=== PATIENT | female | born 1980 | race Caucasian/White ===

== ENCOUNTER 2019-04-07 04:58 | Inpatient (IN) | payer SELFPAY ==
[2019-04-07 05:05] VITALS: BP 136/90; PULSE 101; RESP 18; TEMP 36.7; O2SAT 99; BMI 23.3
[2019-04-07 05:11] VITALS: PULSE 88; RESP 16; O2SAT 97
--- NOTE | 2019-04-07 05:33 | ED_ITS ---
Entered by Cece Okeefe, acting as scribe for Beatrice Sorto Sunitha Apr 07, 2019 04:58 HPI - Female Genitourinary General: Chief complaint: Urogenital-Female Stated complaint: green vaginal discharge Time Seen by Provider: 04/07/19 05:24 Source: patient Mode of arrival: ambulatory History of Present Illness: HPI Narrative: 39 y/o female presents to the ED with complaint of lower abd pain and cramping. Pt states this has been going on for 7-10 days. She states to has green vaginal discharge and a foul odor ( it smells like something crawled up in there and ). She has recently had a new sexual partner who has been with multiple other women. She has had thoughts of harming herself because of increased social stress. Pt is currently homeless and reports not being able to see her kids. She was going to seek psychiatric help before today, but she did not have anyone to take care of her dogs if she was admitted to the [facility]. MD elicited complaint: vaginal discharge and possible STD Pertinent past history: PID Onset (ago): day(s) Location of symptoms: vaginal and pelvis Severity: moderate Quality of pain: cramping Consistency: progressively worsening Vaginal bleeding: other (green) Urinary symptoms: Foul Smelling Urine Associated symptoms: Reports abdominal pain; Deny headache(s), nausea or syncope Sexual activity: Yes and New Sexual Partners Review of Systems General: Reports: other (negative unless marked) Const: Denies: fever, chills, body aches, fatigue, malaise or diaphoresis Eyes: Denies: change in vision or blurry vision ENMT: Denies: throat pain, painful swallowing, hoarseness, ear pain, ear discharge, Change in hearing or nasal discharge Card: Denies: chest pain, palpitations, irregular heart rhythm, syncope, pre- syncope, shortness of breath on exertion or shortness of breath when lying down Resp: Denies: shortness of breath, productive cough, non-productive cough, wheezing, coughing up blood or chest congestion GI: Reports: abdominal pain; Denies: nausea, vomiting, vomiting blood, coffee grounds in vomit, diarrhea, constipation, cramping, blood in stool or black tarry stool : Denies: urinary incontinence or blood in urine Musc: Denies: neck pain, back pain, extremity pain, extremity swelling, joint pain, joint swelling, joint warmth or joint stiffness Skin/Breast: Denies: rash, skin tenderness or yellow skin Neuro: Denies: headache, numbness in extremities, weakness in extremities, changes in sensation, lack of coordination, difficulty walking, dizziness, vertigo or confusion Endo: Denies: excessive thirst, tired all the time, cold intolerance, excessive sweating, flushing or hot flashes Nicolás/Lymph: Denies: easy bruising, easy bleeding, petechiae or enlarged lymph nodes All/Imm: Denies: hives, throat swelling, tongue swelling, facial swelling or acute wheezing PFSH ED PFSH: Social History Smoking and tobacco status: current every day smoker Physical Exam Const: COMMON NORMALS: no apparent distress, oriented x3 and no limitations EXAM LIMITATIONS: no altered mental status GENERAL APPEARANCE: cooperative and well developed ORIENTATION/CONSCIOUSNESS: Yes awake HENMT: COMMON NORMALS: normocephalic, head/scalp atraumatic, hearing grossly normal bilaterally, external ears normal, EAC's normal, external nose normal and moist oral mucous membranes HEAD & SCALP: normal to inspection, normocephalic and atraumatic FACE & SINUS: normal facial exam and face symmetric NOSE: external nose normal and nares normal EXTERNAL EAR: Yes external ears normal EXTERNAL AUDITORY CANAL: EAC's normal MOUTH: oral and palatal mucosa normal and tongue normal Eye: COMMON NORMALS: PERRL, EOMs intact bilaterally, conjunctivae normal and no scleral icterus GENERAL EYE: normal appearance of both eyes and normal light reflex CONJUNCTIVA: Yes conjunctivae normal SCLERA: sclerae normal CORNEA: Yes corneas normal PUPIL: Yes PERRL DIRECT OPHTHALMOSCOPY: Yes normal light reflex Neck/C-Spine: COMMON NORMALS: full ROM, no lymphadenopathy, supple, no meningeal signs and no JVD GENERAL: Yes normal visual inspection and Yes trachea midline CERVICAL SPINE: Yes cervical ROM normal Chest: COMMONS NORMALS: inspection of chest normal and palpation of chest normal Resp: COMMON NORMALS: normal respiratory effort, no retractions, no use of accessory muscles and clear to auscultation bilaterally EFFORT & INSPECTION: Yes able to speak in complete sentences AUSCULTATION: clear to auscultation bilaterally Cardio: COMMON NORMALS: no JVD, regular rate, regular rhythm, S1 normal heart sound, S2 normal heart sound, no gallops, no clicks, no murmurs and no rub JUGULAR VENOUS DISTENTION: no JVD RATE: regular rate RHYTHM: regular rhythm HEART SOUNDS: S1 normal and S2 normal GI: COMMON NORMALS: soft to palpation, non-tender, no hepatosplenomegaly and no masses INSPECTION: Yes normal to inspection PALPATION: Yes soft and Yes no hepatosplenomegaly : SPECULUM EXAM - VAGINA: Yes other (External exam normal. Copious bright green discharge from the cervix. Cervical motion tenderness present. Adnexal tenderness present bilaterally but no fullness.) Extremity: COMMON NORMALS: normal to inspection, full ROM, normal capillary refill, no joint enlargement, no clubbing, cyanosis or edema and no calf tenderness Neuro: COMMON NORMALS: oriented x3, CN's II-XII intact bilaterally, moves all extremities, no focal motor deficits and no sensory deficits noted MENINGEAL SIGNS: Yes no meningeal signs Psych: COMMON NORMALS: mental status grossly normal, thought process normal, cooperative, affect normal, speech normal and activity/motor behavior normal SPEECH: Yes normal speech THOUGHT PROCESS: normal thought process Skin: COMMON NORMALS: no rashes or lesions noted, skin turgor normal, no jaundice, no petechiae and no mottling GENERAL SKIN EXAM: no rashes or lesions noted and turgor normal Course Vital Signs: Vital signs: Vital Signs Temperature 98.0 F 04/07/19 05:05 Pulse Rate 101 H 04/07/19 05:05 Respiratory Rate 18 04/07/19 05:05 Blood Pressure 136/90 04/07/19 05:05 Pulse Oximetry 99 04/07/19 05:05 Sign Out Sign Out Data: Sign Out Comment: Case turned over to Dr. Alejandre at change of shift. Last updated by Beatrice Sorto at 04/07/19 05:47 Coding Level of Care Code ED Bandage Maker for Chg Fwd Exam Comprehensive The documentation recorded by the Maldonado keen Ashley, accurately reflects the service I personally performed and the decisions made by me, Beatrice Sorto Apr 07, 2019 04:58
--- NOTE | 2019-04-07 05:54 | PC.NURSE ---
During triage patient stated she had thoughts of cutting her wrist or jumping in front of a semi truck last night due to being homeless, current STI, and recent drug use. Patient states she has had increasing amount of days of these similar thoughts. States she purposely picks fights with people hoping they will beat her to where she doesn't wake up and have to deal with life anymore.
[2019-04-07 06:12] LABS: HCG Qualitative Urine. Negative (Negative)
[2019-04-07 06:24] LABS: Bilirubin Urine Neg (NEGATIVE); Blood Urine Neg (Negative); Glucose Urine UA Norm (Normal); Ketones Urine Negative (Negative); Leukocyte Esterase Urine Negative (Negative); Nitrate Urine Negative (Negative); Protein Urine Trace (Negative); Specific Gravity, Urine 1.025 (1.005-1.030); Urine Appearance Clear (CLEAR); Urine Color Yellow (Yellow); Urobilinogen Urine Norm (Negative); pH Urine 5 (5-7)
--- NOTE | 2019-04-07 06:25 | USR_ITS ---
PROCEDURE INFORMATION: Exam: US Pelvis Complete, Transabdominal Exam date and time: 04/07/2019 8:52 AM Age: 39 years old Clinical indication: Pelvic pain TECHNIQUE: Imaging protocol: Real-time transabdominal pelvic ultrasound with image documentation. Complete exam. COMPARISON: CT abdomen pelvis w con* [id number] 09/11/2014 7:07 PM FINDINGS: Uterus/cervix: Uterus measures 6.9 x 3.8 by 4.0 cm. Endometrium measures 6 mm in diameter. Right adnexa: Right ovary not visualized. Left adnexa: Left ovary not visualized. Free fluid: No significant free fluid. Bladder: Internal echoes in the bladder. US/US pelvic complete* [id number] IMPRESSION: No acute sonographic abnormality in the visualized uterus, with nonvisualization of the ovaries.
[2019-04-07 06:30] LABS: Amorphous Sediment Urine 3+; Bacteria Urine 1+; Mucus Urine TRACE; RBC Urine RARE /hpf (0-2); Squamous Epithelial Cell Urine 0-4 (0-5); WBC Urine 0-4 /hpf (0-5)
[2019-04-07 06:31] LABS: Add Urine Culture? No
[2019-04-07 06:39] LABS: Basophils # 0.1 10^3/uL (0.0-0.1); Basophils % 0.7 %; Eosinophils # 0.2 10^3/uL (0.0-0.8); Eosinophils % 2.9 %; Hematocrit 41.5 % (37.0-47.0); Hemoglobin 12.1 g/dL (11.5-15.3); Lymphocytes # 2.8 10^3/uL (0.8-4.8); Lymphocytes % 37.6 %; Mean Corpuscular HGB Conc 29.2 g/dL (30.0-36.0); Mean Corpuscular Hemoglobin 26.1 pg (28.0-34.0); Mean Corpuscular Volume 89.6 fL (81-99); Monocytes # 0.5 10^3/uL (0.2-0.9); Monocytes % 6.1 %; Neutrophils # 3.9 10^3/uL (1.8-7.7); Neutrophils % 52.6 %; Nucleated Red Blood Cells % 0 %; Platelet Count 383 10^3/cmm (130-400); Red Blood Count 4.63 10^6/uL (4.1-5.3); Red Cell Distribution Width 13.3 % (12.1-15.1); White Blood Count 7.4 10^3/uL (4.0-10.0)
[2019-04-07 07:00] LABS: Barbiturates Screen Urine Negative (Negative); Benzodiazepines Screen Urine Negative (Negative); Cocaine Screen Urine Negative (Negative); Opiate Screen Urine Negative (Negative); PCP Screen Urine Negative (Negative); THC Screen Urine Negative (Negative)
[2019-04-07 07:05] LABS: Amphetamines Screen Urine Positive (Negative)
--- NOTE | 2019-04-07 07:11 | PC.NURSE ---
report received from MARINA Spivey-care assumed over pt at this time
--- NOTE | 2019-04-07 07:19 | PC.NURSE ---
portable ultrasound at bedside
[2019-04-07 07:21] LABS: Lithium 0.1 mmol/L (0.6-1.2)
[2019-04-07 07:37] LABS: Alanine Aminotransferase 29 U/L (0-33); Albumin Level 3.9 g/dL (3.5-5.2); Alkaline Phosphatase 107 IU/L (35-105); Anion Gap 21.2 (5-19); Blood Urea Nitrogen 26 mg/dL (6-20); Calcium 9.8 mg/dL (8.5-10.5); Carbon Dioxide 21 mmol/L (22-29); Chloride 101 mmol/L (98-107); Globulin 3.3 g/dL (1.3-4.6); Glucose 119 mg/dL (65-115); Magnesium 2.2 mg/dL (1.7-2.3); Potassium 4.2 mmol/L (3.5-5.1); Sodium 139 mmol/L (136-145); Thyroid Stimulating Hormone 15.41 uIU/mL (0.27-4.20); Total Bilirubin 0.4 mg/dL (0.15-1.2); Total Protein 7.2 g/dL (6.6-8.7)
[2019-04-07 07:38] LABS: Acetaminophen < 5.0 ug/mL (10-30); Aspartate Amino Transferase 41 U/L (0-32); Creatine Phosphokinase 644 U/L (26-192); Salicylate < 0.3 mg/dL (3-10)
[2019-04-07 07:42] LABS: Alcohol Level < 10 mg/dL (0-10); Carbamazepine Tegretol < 2.0 ug/mL (4.0-12.0)
[2019-04-07 07:43] LABS: Phenytoin Dilantin < 0.8 ug/mL (10-20)
[2019-04-07] MEDS: clindamycin 900 MG/50 ML PREMIX 100 MG IV (08:09)
[2019-04-07] MEDS: azithromycin 250 mg Tablet 1000 MG PO (08:09)
--- NOTE | 2019-04-07 08:18 | PC.NURSE ---
pt states to nurse, I am not actually suicidal now. I know that I have to be on suicide watch but I have 2 job interviews on Tuesday and I feel great now. ED provider notified.
[2019-04-07 10:28] VITALS: BP 122/70; PULSE 94; TEMP 36.9; O2SAT 98
[2019-04-07 11:10] VITALS: BP 129/81; PULSE 90; RESP 18; TEMP 36.8; O2SAT 99
[2019-04-07 14:00] VITALS: BP 129/81; PULSE 90; RESP 18; TEMP 36.8; O2SAT 97
[2019-04-07] MEDS: acetaminophen 325 mg Tablet 650 MG PO (20:26)
[2019-04-07] MEDS: doxycycline 100 mg Tablet PO (20:27)
--- NOTE | 2019-04-07 20:29 | PC.NURSE ---
TYLENOL 650 MG PO GIVEN FOR BACK PAIN.
[2019-04-07 22:00] VITALS: BP 100/66; PULSE 84; RESP 18; TEMP 36.9; O2SAT 99
[2019-04-08 06:00] VITALS: BP 99/63; PULSE 65; RESP 18; TEMP 36.5; O2SAT 99
--- NOTE | 2019-04-08 09:14 | PM.NHP ---
Providers/Chief Complaint Admitting Physician: Raffaele Ramirez MD Primary Care Provider: Pedro Cali MD Chief Complaint: green vaginal discharge HPI NPU History of Present Illness Lulu Grewal is a 39 year old female who presents reporting that she has a fairly short history of mental health treatment starting back in 2016 where she had reportedly cut her wrist as a reverse psychology against one of her godchildren who was putting a gun in his mouth and playing Swiss Roulette. She reports that she didn't stay on any medications at that point and she has another hospitalization shortly after that with essentially the same issue. She reports at some point she went to aftercare and was started on medication but she reports they said she didn't really need it and they took her off the medication. She reported that the therapist said I was an inspiration to her, and you should become a psychiatrist. She reports that essentially she has been struggling to get her kids back. She reports that they all went to stay with their fathers or other family members because she kept letting people stay with them. She finally realized that she needed to take care of her own before other people that were begging her for help. So she has been working to get things back on track. She has a play set up that she just needs a new the paperwork on. There was a patent that she had lost that she gotten back now. And she reports that everything was going well and she woke up frustrated because things were happening fast enough. She came to the emergency room with an STD and while talking about the [facility] set about all these challenges she made a comment that led to her being put on a 96 hour hold. She denies having any suicidal ideation, feelings of hopelessness, helplessness or worthlessness, no feelings of guilt, no difficulty sleeping, no anxiety or anything of that nature. She reports that before she gets down about her situation but she has no interest in doing anything to hurt herself and is not interested in getting put on medication. Her UDS was positive for methamphetamine which she denies actively taking but wondered if someone had slipped her something. Psychiatric history: As above. This is her third hospitalization. She has not and maintained on medications for any significant period. Substance abuse history: She reports that she is now down to smoking about a pack of cigarettes every 3 days. She is not drinking alcohol currently. She denies marijuana or any other illicit drugs. She denies history of rehabs or DUIs. Family history: She endorses significant mental health and addiction issues on both sides of her family. She endorses significant suicide attempts or completions in [place] that she wants her mom make suicide attempts all through her childhood. Developmental history: She denies any issues with her mom's or delivery of her. She reports that she learn to walk and talk about her developmental milestones on time. She reports that she did not need speech therapy, learning support, emotional supports or special education classes. Psychosocial history: She reports that her mother and father were together until she was about 6. That she and her younger brother are the only products of that union. Her mother had no other children. Her father had 5 other sons and one other daughter. She reports her childhood was really tough to the point that when this typewriters functional tester asked specifics she refused to comment only reporting, I don't want to talk about it. She did not graduate from high school only going to the eighth grade. She endorses that she continues to want to get her GED. She endorses she is a heterosexual with her long relationship between 21 years. That's her marriage to her spouse from whom she is . She has had 5 sons ages 14, 16, 19, 20 and 21. She never been in the and has no congregation belief system. 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 She currently lives in a trailer with a friend but is supposedly moving out to her own place is seen as the paperwork is done. Legal history: She has been in senior care multiple times. But only 2 times for any time. 19 days on one occasion is 17 days on another. History of Present Illness Date of Service: Mar 09, 2016 Chief Complaint: Self-harm behavior HPI: His Uri is a 36-year-old female who is well known to our behavioral health services who for the second time in less than a month has been admitted under 96 hour hold for cutting her wrists. Affidavits revealed that police were called and the patient was found in the street inebriated with a trail of blood from her door coming from a self-inflicted 6 inch laceration that required song. In confronted the patient about this today she very much minimizes the behavior stating that this is a fetish , states that she was here a month ago and the other doctor lightly go , admits that she engage in his behavior most recently in front of her godchildren, and with the expectation that she will be released from her 96 hour hold. She denies any hallucinations denies any paranoia. She states that she has been prescribed medications but has not been able to pick him up, is not able to be specific about what these medicines are for or what they are. Reviewed with her that her alcohol level was 198 on admission, and that her thyroid profile suggests significant hypothyroidism. By her report she does have a history of hypothyroidism for which she is to be taking levothyroxine but she has not taken this since last November. The patient became somewhat uncooperative as the interview progressed, particularly and learning that she will be held for the 96 hours for continued assessment and evaluation and treatment as necessary. Meds NPU Home Medications Medication Instructions Recorded Confirmed Type No Known Home Medications 04/07/19 04/07/19 History Allergies Allergy/AdvReac Type Severity Reaction Status Date / Time amoxicillin [From Augmentin] Allergy ALGY-Hives Verified 04/07/19 05:13 cephalexin [From Keflex] Allergy ALGY-Hives Verified 04/07/19 05:13 clavulanic acid Allergy ALGY-Hives Verified 04/07/19 05:13 [From Augmentin] latex Allergy ALGY-Hives Verified 04/07/19 05:16 Quinolones Allergy ALGY-Hives Verified 04/07/19 05:13 sulfamethoxazole Allergy ALGY-Hives Verified 04/07/19 05:13 [From Bactrim] trimethoprim [From Bactrim] Allergy ALGY-Hives Verified 04/07/19 05:13 PFS NPU PFSH: Social History Smoking and tobacco status: current every day smoker Mental Status Exam MSE Comments: This is a well-nourished, well-developed white female appearing older than his stated age with limited dressed, grooming and adequate eye contact. No abnormal movements except for mild psychomotor retardation. Cooperative with exam in no acute distress. Speech was normal rate and volume. Mood described as tired but fine affect congruent. Thought process organized. Thought content: Patient denied any suicidal or homicidal ideations, there were no delusions reported noted, she denied any auditory or visual hallucinations. Attention and concentration were intact and memory appeared reliable but none were formally tested. She is alert and oriented ?3. Insight and judgment were improving. Vitals/I&O/Wt Last Vital Signs Temp 97.7 F 04/08/19 06:00 Pulse 65 04/08/19 06:00 Resp 18 04/08/19 06:00 BP 99/63 04/08/19 06:00 Pulse Ox 99 04/08/19 06:00 Weight last 48 hrs Weight 67.699 kg Weight 67.585 kg Home Medications No Known Home Medications 04/07/19 [History Confirmed 04/07/19] Active Medications Acetaminophen (Tylenol) 650 mg PO Q4H PRN PRN Reason: MILD PAIN Last Admin: 04/07/19 20:26 Dose: 650 mg Documented by: Benztropine Mesylate (Cogentin) 1 mg PO BID PRN PRN Reason: Mild Extrapyramidal symptoms Camphor/Menthol/Phenol (Blistex) 1 applic TOPICAL Q1H PRN PRN Reason: DRYNESS Diphenhydramine HCl (Benadryl) 50 mg IM ONCE PRN PRN Reason: Severe Extrapyramidal Symptoms Diphenhydramine HCl (Benadryl) 50 mg IM Q4H PRN PRN Reason: Severe Aggression Doxycycline Monohydrate (Vibramycin) 100 mg PO Q12H [facility]; Protocol Stop: 04/21/19 10:50 Last Admin: 04/07/19 20:27 Dose: 100 mg Documented by: Haloperidol (Haldol) 5 mg PO Q4H PRN PRN Reason: AGITATION Haloperidol Lactate (Haldol Inj) 5 mg IM Q4H PRN PRN Reason: Severe Aggression Hydroxyzine Pamoate (Vistaril) 50 mg PO Q6H PRN PRN Reason: ANXIETY Loperamide HCl (Imodium Capsule) 2 mg PO Q6H PRN PRN Reason: DIARRHEA Lorazepam (Ativan) 2 mg IM Q4H PRN PRN Reason: Severe Aggression Nicotine (Nicoderm 21 Mg Patch) 1 patch TRANSDERMA DAILY PRN PRN Reason: NICOTINE WITHDRAWAL Nicotine Polacrilex (Nicorette) 2 mg BUCCAL Q2H PRN PRN Reason: NICOTINE WITHDRAWAL Olanzapine (Zyprexa Zydis) 5 mg PO Q4H PRN PRN Reason: Agitation/Psychosis Ondansetron HCl (Zofran) 4 mg PO Q6H PRN PRN Reason: NAUSEA AND VOMITING Trazodone HCl (Desyrel) 50 mg PO BEDTIME PRN PRN Reason: SLEEP Data NPU : 04/07/19 06:33 04/07/19 06:33 Micro: Microbiology 04/07/19 05:30 Chlamydia trachomatis (RIKY) - Final Urine Random Neisseria gonorrhoeae (RIKY) - Final Trichomonas vaginalis (RIKY - Final 04/07/19 05:43 Wet Prep - Final Vaginal Microbiology 04/07/19 05:30 Urine Random Chlamydia trachomatis (RIKY) - Final 04/07/19 05:30 Urine Random Neisseria gonorrhoeae (RIKY) - Final 04/07/19 05:30 Urine Random Trichomonas vaginalis (RIKY - Final 04/07/19 05:43 Vaginal Wet Prep - Final A&P Assessment and plan (1) Adjustment disorder with mixed disturbance of emotions and conduct: This is a 39-year-old white female with a recent history of parasuicidal behavior with none for a few years who presents with some stressors related to getting her home in kids back together reported to the emergency room for treatment of unrelated condition which led to her making a suicidal statement which led to her being put on a 96 hour hold. 1. Continue current medication. 2. Offered medication for possible depression/anxiety but it is not desired. 3. She is not wanting inpatient hospitalization but we will monitor for a while longer given the 96 hour hold. 4. Encourage individual, group therapy. 5. Continue every 15 minute checks for safety. 6. Continue to explore the possibility of occult drug use and need for drug and alcohol treatment. Status: Acute Code(s): F43.25 - Adjustment disorder with mixed disturbance of emotions and conduct (2) Suicidal ideation: Status: Acute Code(s): R45.851 - Suicidal ideations Involuntary Hold Information 96 Hour Hold: 96 Hour Involuntary Admission: Yes 96 Hour Hold Ending Date: 04/06/19 Attestations NPU Medical Necessity Statement*: Inpatient hospitalization is medically necessary and the clinically appropriate intervention at this time. She will be in the hospital for over 2 midnights. She is not interested in medication so we will hold medication trials. We'll monitor for credible lethality and consider discharge tomorrow. Likely length of stay 1-3 days. Coding Level of Care Code Acute Energy Director for [facility] Fwd Diagnoses Adjustment disorder with mixed disturbance of emotions and conduct F43.25 Suicidal ideation R45.851
[2019-04-08 13:45] VITALS: BP 104/68; PULSE 69; RESP 18
[2019-04-08] MEDS: doxycycline 100 mg Tablet PO ×2 (21:17→21:18)
[2019-04-08 21:20] VITALS: BP 108/74; PULSE 100; RESP 19; TEMP 36.9; O2SAT 97
[2019-04-09 06:00] VITALS: BP 98/63; PULSE 66; RESP 18; TEMP 36.9; O2SAT 100
[2019-04-09] MEDS: doxycycline 100 mg Tablet PO (08:57)
--- NOTE | 2019-04-09 11:26 | P.DS_ITS ---
Diagnoses at Discharge Discharge Diagnosis (1) Adjustment disorder with mixed disturbance of emotions and conduct: Status: Acute Reason for Visit Reason for Visit: Reason For Visit: green vaginal discharge Brief History: History of Present Illness Lulu Grewal is a 39 year old female who presents reporting that she has a fairly short history of mental health treatment starting back in 2016 where she had reportedly cut her wrist as a reverse psychology against one of her godchildren who was putting a gun in his mouth and playing [employer] [employer]. She reports that she didn't stay on any medications at that point and she has another hospitalization shortly after that with essentially the same issue. She reports at some point she went to aftercare and was started on medication but she reports they said she didn't really need it and they took her off the medication. She reported that the therapist said I was an inspiration to her, and you should become a psychiatrist. She reports that essentially she has been struggling to get her kids back. She reports that they all went to stay with their fathers or other family members because she kept letting people stay with them. She finally realized that she needed to take care of her own before other people that were begging her for help. So she has been working to get things back on track. She has a play set up that she just needs a new the paperwork on. There was a patent that she had lost that she gotten back now. And she reports that everything was going well and she woke up frustrated because things were happening fast enough. She came to the emergency room with an STD and while talking about the [facility] set about all these challenges she made a comment that led to her being put on a 96 hour hold. She denies having any suicidal ideation, feelings of hopelessness, helplessness or worthlessness, no feelings of guilt, no difficulty sleeping, no anxiety or anything of that nature. She reports that before she gets down about her situation but she has no interest in doing anything to hurt herself and is not interested in getting put on medication. Her UDS was positive for methamphetamine which she denies actively taking but wondered if someone had slipped her something. Psychiatric history: As above. This is her third hospitalization. She has not and maintained on medications for any significant period. Substance abuse history: She reports that she is now down to smoking about a pack of cigarettes every 3 days. She is not drinking alcohol currently. She denies marijuana or any other illicit drugs. She denies history of rehabs or DUIs. Family history: She endorses significant mental health and addiction issues on both sides of her family. She endorses significant suicide attempts or completions in [place] that she wants her mom make suicide attempts all through her childhood. Developmental history: She denies any issues with her mom's or delivery of her. She reports that she learn to walk and talk about her developmental milestones on time. She reports that she did not need speech therapy, learning support, emotional supports or special education classes. Psychosocial history: She reports that her mother and father were together until she was about 6. That she and her younger brother are the only products of that union. Her mother had no other children. Her father had 5 other sons and one other daughter. She reports her childhood was really tough to the point that when this marketing copywriter asked specifics she refused to comment only reporting, I don't want to talk about it. She did not graduate from high school only going to the eighth grade. She endorses that she continues to want to get her GED. She endorses she is a heterosexual with her long relationship between 21 years. That's her marriage to her spouse from whom she is . She has had 5 sons ages 14, 16, 19, 20 and 21. She never been in the and has no temple belief system. 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 She currently lives in a trailer with a friend but is supposedly moving out to her own place is seen as the paperwork is done. Legal history: She has been in halfway multiple times. But only 2 times for any time. 19 days on one occasion is 17 days on another. History of Present Illness Date of Service: Mar 09, 2016 Chief Complaint: Self-harm behavior HPI: His Uri is a 36-year-old female who is well known to our behavioral health services who for the second time in less than a month has been admitted under 96 hour hold for cutting her wrists. Affidavits revealed that police were called and the patient was found in the street inebriated with a trail of blood from her door coming from a self-inflicted 6 inch laceration that required song. In confronted the patient about this today she very much minimizes the behavior stating that this is a fetish , states that she was here a month ago and the other doctor lightly go , admits that she engage in his behavior most recently in front of her godchildren, and with the expectation that she will be released from her 96 hour hold. She denies any hallucinations denies any paranoia. She states that she has been prescribed medications but has not been able to pick him up, is not able to be specific about what these medicines are for or what they are. Reviewed with her that her alcohol level was 198 on admission, and that her thyroid profile suggests significant hypothyroidism. By her report she does have a history of hypothyroidism for which she is to be taking levothyroxine but she has not taken this since last November. The patient became somewhat uncooperative as the interview progressed, particularly and learning that she will be held for the 96 hours for continued assessment and evaluation and treatment as necessary. Hospital Course Hospital Course This is a well-nourished well-developed white male with adequate dress grooming contact. No abnormal movements except for mild psychomotor retardation. Cooperative with exam in no acute distress. Speech was slightly decreased rate and volume. Mood described as a little better, affect congruent. Thought process organized. Thought content: Patient denied any suicidal or homicidal ideation, there were no delusions reported noted, he denied any auditory or visual hallucinations. Attention and concentration were intact and memory appeared reliable but none were formally tested. He is alert and oriented ?3. Insight and judgment are fair and improving. Discharge Summary At the time of discharge there was no lethality, mood and anxiety had stabi lized, there was no psychosis reported. Plan to avoid all drugs of abuse and follow-up with outpatient services was endorsed. Patient was evaluated and found to be absent credible lethality and had obtained the maximum benefit from an inpatient hospitalization so they were discharged. Involuntary Hold Information 96 Hour Hold: 96 Hour Involuntary Admission: Yes 96 Hour Hold Ending Date: 04/06/19 Mental Status Exam MSE Comments: This is a well-nourished, well-developed white female appearing older than her stated age with adequate dress, grooming and adequate eye contact. No abnormal movements except for mild psychomotor retardation. Cooperative with exam in no acute distress. Speech was normal rate and volume. Mood described as pretty good affect congruent. Thought process organized. Thought content: Patient denied any suicidal or homicidal ideations, there were no delusions reported noted, she denied any auditory or visual hallucinations. Attention and concentration were intact and memory appeared reliable but none were formally tested. She is alert and oriented ?3. Insight and judgment were improving. Discharge Data Data Completed and Pending: Completed Studies During Hospitalization Category Date Time Status US pelvic complet e* [id number] Urgent Ultrasound 04/07/19 06:25 Completed Vitals: Last Vital Signs Temp 98.4 F 04/09/19 06:00 Pulse 66 04/09/19 06:00 Resp 18 04/09/19 06:00 BP 98/63 04/09/19 06:00 Pulse Ox 100 04/09/19 06:00 Discharge Plan Discharge Patient Disposition: Home, Self-Care Condition: Stable Prescriptions: Continued No Known Home Medications RF: 0 Discharge Orders: Discharge Order (Routine); Ordered 04/09/19 Ordered By: Raffaele Ramirez Referrals: Pedro Cali MD [Primary Care Provider] - (Call when you get home to establish a new primary care physician and make an appointment. [facility] for a reference [phone]. This is for a hospital follow up.) Luisa Steel [Family Provider] - 04/10/19 3:00 pm (You have an appointment with Luisa Steel at [facility] [phone] for April 10, 2019 at 3:00pm.) Discharge Diet: Regular Discharge Activity: Resume usual activity Activity Restrictions/Additional Instructions: Do contact your business case analyst Luisa Steel as soon as possible. [phone] #[id number] Do schedule a follow-up appointment for your medical needs. Discharge Date/Time: 04/09/19 13:17 Discharge Attestations NPU Time Spent in Discharge Care*: less than 30 min Specific Discharge Activities: Specific discharge activities: educating patient, discussing with assistant case manager/social workers/dc planners, documenting/other paperwork and evaluating patient/reviewing data Coding Level of Care Code Acute Parking Patroller for Chg Fwd Diagnoses Adjustment disorder with mixed disturbance of emotions and conduct F43.25
[2019-04-09 12:34] VITALS: BP 98/63; PULSE 66; RESP 18; TEMP 36.9; O2SAT 100
[2019-04-09 12:36] VITALS: BP 98/63; PULSE 66; RESP 18; TEMP 36.9; O2SAT 100
== END 2019-04-09 13:17 | disposition home or self-care (01) | DRG 882 ==
LOC: ER 10:34 → NP 10:36
PROVIDERS: Emergency Medicine; Admitting Provider Psychiatry & Neurology Psychiatry; Emergency Provider Family Medicine; Family Provider Psychiatry & Neurology Neurology; PCP Family Medicine; Visit Provider Psychiatry & Neurology Psychiatry
DX: F43.25 Adjustment disorder with mixed disturbance of emotions and conduct (principal); R45.851 Suicidal ideations; Z91.5 Personal history of self-harm; F17.210 Nicotine dependence, cigarettes, uncomplicated
CPT/HCPCS: 12345; 36415; 76856; 80053; 80156; 80178; 80185; 80307; 81001; 81025; 82550; 83735; 84443; 85025; 87210; 87491; 87591; 87661; 99283; J3490; Q0144

== ENCOUNTER 2019-10-21 12:26 | Emergency (ER) | payer SELFPAY ==
[2019-10-21 12:32] VITALS: BP 131/79; PULSE 64; RESP 15; TEMP 37.1; O2SAT 100; BMI 23.5
--- NOTE | 2019-10-21 12:51 | W.ED.GENADLT ---
HPI - General Adult General: Chief complaint: General Medical Stated complaint: ear pain & green vaginal dischage Time Seen by Provider: 10/21/19 12:31 History of Present Illness: HPI narrative: Patient complains about bilateral ear pain times weeks said she felt like it could be possibly infectious had a history that she also states that she has had green vaginal discharge since March treated wants never has gone away said she unable to afford antibiotics she has been homeless for a long time now working says she can afford some medicine. MD complaint: Ear pain and BV Onset (ago): month(s) Associated symptoms: Reports no associated symptoms; Deny chest pain, dyspnea, headache(s), nausea, rash or vomiting Review of Systems Const: Denies: fever(s), chills or body aches Eyes: Denies: change in vision or blurry vision ENMT: Reports: other (Bilateral ear pain chronic thinks she might have an infection); Denies: throat pain or nasal congestion Card: Denies: chest pain or dyspnea on exertion Resp: Denies: dyspnea, productive cough or non-productive cough GI: Denies: abdominal pain, nausea or vomiting : Reports: vaginal discharge (Said this is gone on since March treated x1 in March ) Musc: Denies: extremity pain Skin/Breast: Denies: rash Neuro: Denies: headache(s) Psych: Denies: anxiety or depression Nicolás/Lymph: Denies: easy bruising PFSH ED PFSH: Social History Smoking and tobacco status: current every day smoker Physical Exam Const: COMMON NORMALS: no acute distress, average body habitus and patient oriented x3 HENMT: COMMON NORMALS: normocephalic HEAD & SCALP: normal to inspection and normocephalic FACE & SINUS: normal facial exam Eye: COMMON NORMALS: conjunctivae normal GENERAL EYE: appearance normal, both eyes and all related structures CONJUNCTIVA: Yes conjunctivae normal Neck/C-Spine: COMMON NORMALS: no JVD Chest: COMMONS NORMALS: normal inspection of the chest Resp: COMMON NORMALS: normal respiratory effort Cardio: COMMON NORMALS: no JVD GI: COMMON NORMALS: Normal to inspection, nondistended, normoactive bowel sounds present : OTHER: Pelvic is deferred based on description patient symptoms Extremity: COMMON NORMALS: normal to inspection and full ROM Neuro: COMMON NORMALS: patient oriented x3 Psych: APPEARANCE: Yes grossly normal and Yes other (Patient appears anxious about health and her ears) Course Vital Signs: Vital signs: Vital Signs Temperature 98.7 F 10/21/19 12:32 Pulse Rate 70 10/21/19 12:58 Respiratory Rate 14 10/21/19 12:58 Blood Pressure 132/75 10/21/19 12:58 Pulse Oximetry 98 10/21/19 12:58 Discharge Plan Discharge Patient Disposition: Home Clinical Impression: Bacterial vaginosis Chronic ear pain Qualifiers: Laterality: bilateral Qualified Code(s): H92.03 - Otalgia, bilateral Condition: Stable Prescriptions: New Flagyl 500 mg tablet 500 mg PO BID 7 Days Qty: 14 RF: 0 Discharge Orders: Discharge Order (Routine); Ordered 10/21/19 Ordered By: Yassine Nash Discharge Diet: Usual diet Discharge Activity: Resume usual activity Patient Instructions: Ear Pain - Adult, Bacterial Vaginosis (ED) Activity Restrictions/Additional Instructions: Follow-up with medical provider as directed. Take medications as prescribed. Return to the ER or your medical provider if condition worsens. Please read and understand discharge instructions. If any questions ask please. Discharge Date/Time: 10/21/19 12:58 Coding Level of Care Code ED Telephone Order Clerk for Shereen Fwcelso Exam Comprehensive
[2019-10-21 12:58] VITALS: BP 132/75; PULSE 70; RESP 14; O2SAT 98
== END 2019-10-21 12:58 | disposition home or self-care (01) ==
PROVIDERS: Emergency Provider Nurse Practitioner Family
DX: N76.0 Acute vaginitis (principal); H92.03 Otalgia, bilateral; F17.210 Nicotine dependence, cigarettes, uncomplicated
CPT/HCPCS: 12345; 99281